=== PATIENT | male | born 1985 | race Caucasian/White ===

== ENCOUNTER 2020-05-03 08:04 | Emergency (ER) | payer OTHER ==
[~2020-05-03] VITALS: Ht 182.9 cm; Wt 87.1 kg
[2020-05-03 08:05] VITALS: BP_SYST 132
--- NOTE | 2020-05-03 08:05 | NUR ---
Patient triaged and placed in TENT . VSS and patient appears in no acute distress at this time. Awaiting available bed, and MD notified of need for MSE.
--- NOTE | 2020-05-03 08:07 | NUR ---
Patient presented to ER C/O left eye pain. Patient ambulatory to ER, afebrile, left scleral redness, left eye pain 5/10, denies N/V/D. Patient reports left eye pain x2 days.
--- NOTE | 2020-05-03 08:30 | NUR ---
Patient to ER triage room for evaluation.
--- NOTE | 2020-05-03 08:35 | NUR ---
ER Dr. Ye at bedside examining patient.
[2020-05-03 08:50] VITALS: BP_SYST 132
--- NOTE | 2020-05-03 08:50 | NUR ---
Patient given written and verbal discharge instructions and verbalizes understanding. ER MD discussed with patient the results and treatment provided. Patient in stable condition. ID arm band removed. Rx of motrin given. Patient educated on pain management and to follow up with PMD. Pain Scale 3/10. Opportunity for questions provided and answered. Medication side effect fact sheet provided.
== END 2020-05-03 08:50 | disposition home or self-care (01) ==
LOC: SED 08:04
DX: H10.89 Other conjunctivitis (principal); Z88.0 Allergy status to penicillin
CPT/HCPCS: 99282

== ENCOUNTER 2021-07-10 11:20 | Emergency (ER) | payer OTHER ==
[~2021-07-10] VITALS: Ht 185.4 cm; Wt 95.3 kg
[2021-07-10 11:20] VITALS: BP_SYST 144
--- NOTE | 2021-07-10 12:27 | NUR ---
Patient to ER bed 03 to gown for evaluation. Side rails up.
--- NOTE | 2021-07-10 12:30 | NUR ---
Assessed patient at bedside. Patient presents stable vital signs.
--- NOTE | 2021-07-10 12:40 | NUR ---
Dr Bustamante at bedside to assess.
[2021-07-10] MEDS ORDERED: TRAM50TA2 PO (13:31)
--- NOTE | 2021-07-10 14:10 | NUR ---
Patient given written and verbal discharge instructions and verbalizes understanding. ER Dr. Bustamante discussed with patient the results and treatment provided. Patient in stable condition. ID arm band removed. Rx of given. Patient educated on pain management and to follow up with PMD. Pain Scale 0. Opportunity for questions provided and answered. Medication side effect fact sheet provided.
[2021-07-10 14:12] VITALS: BP_SYST 136
== END 2021-07-10 14:10 | disposition home or self-care (01) ==
LOC: SED 11:20
DX: S10.0XXA Contusion of throat, initial encounter (principal); Z88.0 Allergy status to penicillin; Y04.0XXA Assault by unarmed brawl or fight, initial encounter; Y93.89 Activity, other specified; Y92.89 Other specified places as the place of occurrence of the external cause; Y99.8 Other external cause status
CPT/HCPCS: 70360-TC; 99283